=== PATIENT | female | born 1950 | race Caucasian/White ===

== ENCOUNTER → 2023-08-09 13:01 | Outpatient (CLI) | payer MEDICARE, OTHER, SELFPAY | PROVIDERS: Family Provider Nurse Practitioner; PCP Nurse Practitioner; Referring Provider Nurse Practitioner; Visit Provider Nurse Practitioner | DX: G90.09 Other idiopathic peripheral autonomic neuropathy (principal) | CPT/HCPCS: 95886; 95910 ==

== ENCOUNTER → 2025-11-03 17:09 | Outpatient (CLI) | payer MEDICARE, OTHER, SELFPAY ==
[2025-11-03 18:26] LABS: Appearance Urine UA CLEAR; Bilirubin Urine UA NEGATIVE (NEGATIVE); Color Urine UA YELLOW; Glucose Urine UA NEGATIVE (Negative); Ketones Urine UA TRACE (NEGATIVE); Leukocyte Esterase Urine UA NEGATIVE (NEGATIVE); Nitrite Urine UA NEGATIVE (Negative); Occult Blood Urine UA TRACE-INTACT (Negative); Protein Urine UA NEGATIVE (Negative); Specific Gravity Urine UA 1.015 (1.000-1.035); Urobilinogen Urine UA 0.2 E.U./dL (0.2)
[2025-11-03 18:28] LABS: pH Urine UA 7.0 (4.5-8.0)
[2025-11-03 18:49] LABS: Culture Indicated Urine Cult Not Indicated
== END ==
PROVIDERS: PCP Nurse Practitioner; Referring Provider Obstetrics & Gynecology Gynecology; Visit Provider Obstetrics & Gynecology Gynecology
DX: N39.3 Stress incontinence (female) (male) (principal)
CPT/HCPCS: 81001